=== PATIENT | female | born 1970 | race Caucasian/White ===

== ENCOUNTER 2016-12-08 08:49 | Inpatient (IN) | payer BC ==
[~2016-12-08] VITALS: Ht 172.7 cm; Wt 101.5 kg
[~2016-12-08 08:49] MED LIST: IMURAN 50MG TAB50 MG PO; IRON325 MG PO; LEXAPRO 10MG10 MG PO; PENTASA500 MG PO; PHENERGAN 25 TA25 MG PO; SINGULAIR 110 MG/TAB PO
[2016-12-23] VITALS (13 sets, daily range): BP systolic 101–139; BP diastolic 56–90; PULSE 65–97; TEMP 98–98.1
[2016-12-23] MEDS ORDERED: IMURAN 50MG TAB50 MG PO (08:37)
[2016-12-23] MEDS ORDERED: PENTASA500 MG PO (08:38)
[2016-12-24] VITALS (9 sets, daily range): BP systolic 108–136; BP diastolic 50–72; PULSE 72–101; TEMP 98.1–101.7
[2016-12-24 07:33] LABS: HEMATOCRIT 36.8 % (37.0-47.0)
[2016-12-24 07:39] LABS: CALCIUM 8.4 mg/dL (8.4-10.2); CREATININE, serum 0.65 mg/dL (0.52-1.25); POTASSIUM 3.5 mmol/L (3.4-5.0)
[2016-12-25 01:45] VITALS: BP 134/73; PULSE 84; TEMP 98.5
[2016-12-25 06:30] VITALS: BP 124/78; PULSE 90; TEMP 99.1
[2016-12-25 09:20] VITALS: BP 131/78; PULSE 87; TEMP 100.3
[2016-12-25 14:07] VITALS: BP 127/73; PULSE 82; TEMP 100.4
[2016-12-25 17:42] VITALS: BP 118/73; PULSE 78; TEMP 98.8
[2016-12-25 21:55] VITALS: BP 117/73; PULSE 76; TEMP 98.7
[2016-12-26 05:19] VITALS: BP 122/76; PULSE 76; TEMP 98.8
[2016-12-26 10:00] VITALS: BP 127/70; PULSE 73; TEMP 97.3
[2016-12-26 14:49] VITALS: BP 117/74; PULSE 75; TEMP 98.4
[2016-12-26 18:04] VITALS: BP 120/73; PULSE 72; TEMP 98.7
[2016-12-26 22:08] VITALS: BP 118/65; PULSE 67; TEMP 98.7
[2016-12-27 04:36] VITALS: BP 130/72; PULSE 65; TEMP 98.2
== END 2016-12-27 11:02 | disposition home or self-care (01) | DRG 330 ==
LOC: INPTSU 12-23 07:44 → SURG 12-23 12:45
PROVIDERS: Surgery
PROC: 8E0W4CZ Robotic Assisted Procedure of Trunk Region, Percutaneous Endoscopic Approach (ICD-10-PCS; 2016-12-23)
PROC: 0DTC4ZZ Resection of Ileocecal Valve, Percutaneous Endoscopic Approach (ICD-10-PCS; principal; 2016-12-23 12:45)
DX: K50.012 Crohn's disease of small intestine with intestinal obstruction (principal)
CPT/HCPCS: A4315; A9284; J0360; J0694; J1170; J1650; J1885; J2405; J2704; J2710; J7042; J7120

== ENCOUNTER → 2017-04-23 | Outpatient (CLI) | payer BC | LOC: MC.RAD 07:40 | DX: Z12.31 Encounter for screening mammogram for malignant neoplasm of breast (principal) ==

== ENCOUNTER → 2018-05-10 | Outpatient (CLI) | payer BC | LOC: MC.RAD 10:20 | DX: Z12.31 Encounter for screening mammogram for malignant neoplasm of breast (principal) ==

== ENCOUNTER → 2019-05-23 | Outpatient (CLI) | payer BC | LOC: MC.RAD 10:39 | DX: Z12.31 Encounter for screening mammogram for malignant neoplasm of breast (principal) ==

== ENCOUNTER → 2020-03-29 | Outpatient (CLI) | payer BC | LOC: COL.RAD 07:59 | DX: K50.00 Crohn's disease of small intestine without complications (principal); Z98.890 Other specified postprocedural states | CPT/HCPCS: Q9967 ==

== ENCOUNTER → 2020-04-03 | Outpatient (CLI) | payer BC | LOC: COL.RAD 07:48 | DX: D25.9 Leiomyoma of uterus, unspecified (principal); R93.3 Abnormal findings on diagnostic imaging of other parts of digestive tract ==

== ENCOUNTER → 2020-06-10 | Outpatient (CLI) | payer BC | LOC: MC.RAD 05-24 16:00 | DX: Z12.31 Encounter for screening mammogram for malignant neoplasm of breast (principal) ==

== ENCOUNTER → 2023-03-25 | Outpatient (CLI) | payer BC | LOC: MC.RAD 16:04 | DX: Z12.31 Encounter for screening mammogram for malignant neoplasm of breast (principal) ==

== ENCOUNTER → 2024-05-25 | Outpatient (CLI) | payer BC | LOC: MC.RAD 09:40 | DX: Z12.31 Encounter for screening mammogram for malignant neoplasm of breast (principal) ==